=== PATIENT | male | born 1980 | race Native Hawaiian/Other Pacific Islander ===

== ENCOUNTER 2022-03-10 13:24 | Emergency (ER) | payer MEDICAID ==
--- NOTE | 2022-03-10 13:47 | ERPHSYRPT ---
- History of Present Illness Time Seen by Provider: 03/10/22 13:42 Source: patient Physician History: Patient is a 41-year-old male who has severe peripheral vascular disease he had amputations of his first 2 toes in December and has had an abscess recently 2 weeks ago and was treated at [facility]. He was on Vanco and other antibiotics. Presently he is on doxycycline orally. He had an appointment at the pain clinic today where he was to receive further pain medications. However he was not there at the correct time and there was no one there to take care of him when he did arrive and he was brought to the ER to obtain pain medicine.He is scheduled to see his sound technician and his infectious disease physician tomorrow. Occurred: other (He has chronic peripheral vascular disease) Quality: aching, burning Severity of Pain-Max: severe Severity of Pain-Current: severe Lower Extremities Pain: foot: bilateral Modifying Factors: Improves With: nothing Associated Symptoms: none Home Medications: Doxycycline Hyclate 100 mg [Vibramycin 100 MG] 100 mg PO BID 03/10/22 [History] Insulin Regular, Human [Humulin R] 200 unit SQ TID 03/10/22 [History] Pregabalin [Lyrica 75 mg Cap] 75 mg PO DAILY 03/10/22 [History] - Review of Systems Constitutional: No Fever, No Chills Eyes: No Symptoms Ears, Nose, & Throat: No Symptoms Respiratory: No Cough, No Dyspnea Cardiac: No Chest Pain, No Edema, No Syncope Abdominal/Gastrointestinal: No Abdominal Pain, No Nausea, No Vomiting, No Diarrhea Genitourinary Symptoms: No Dysuria Musculoskeletal: No Back Pain, No Neck Pain Skin: No Rash Neurological: No Dizziness, No Focal Weakness, No Sensory Changes Psychological: No Symptoms Endocrine: No Symptoms All Other Systems: Reviewed and Negative - Physical Exam General Appearance: moderate distress, alert Eyes, Ears, Nose, Throat Exam: moist mucous membranes Neck Exam: non-tender, supple Cardiovascular/Respiratory Exam: chest non-tender, normal breath sounds, regular rate/rhythm, no respiratory distress Gastrointestinal/Abdominal Exam: non-tender, guarding Back Exam: normal inspection, No vertebral tenderness Hips Exam: bilateral: non-tender, normal inspection, normal range of motion Legs Exam: bilateral leg: non-tender, normal inspection, normal range of motion Knees Exam: bilateral knee: non-tender, normal inspection, normal range of motion Ankle Exam: bilateral ankle: non-tender, normal inspection, normal range of motion Foot Exam: bilateral foot: other (There is amputation of the first 2 toes of the left foot which appears to be healing there are multiple ulcers on the plantar surface of the right foot and an abscess involving the third toe.) Neuro/Tendon Exam: normal sensation, normal motor functions Mental Status Exam: alert, oriented x 3, cooperative Skin Exam: normal color, warm, dry SpO2 Interpretation: normal O2 Delivery: Room Air - Course Nursing assessment & vital signs reviewed: Yes - Progress Progress: unchanged Progress Note: 03/10/22 13:48 We contacted the pain clinic and asked for an explanation as to why he was sent to our facility. They did say that they sent him here because there was no one left in the clinic to treat him today. - Departure Departure Disposition: Home Clinical Impression: Foot pain, bilateral Condition: Stable Critical Care Time: No Instructions: Chronic Pain (DC) Prescriptions: Hydrocodone/Acetaminophen [Hydrocodone-Acetamin 5-325 mg] 1 tab PO Q6HPRN PRN 3 Days #12 tablet MDD 4 PRN Reason: Pain
[2022-03-10 13:50] VITALS: BP 151/106; PULSE 115; O2SAT 98
[2022-03-10] MEDS ORDERED: NORCO 5/325 MG PO ONE (13:56)
[2022-03-10] MEDS ORDERED: NORCO 5/325 MG ONE (14:00)
== END 2022-03-10 14:12 | disposition home or self-care (01) ==
LOC: ED 13:24
DX: M79.671 Pain in right foot (principal); M79.672 Pain in left foot; I73.9 Peripheral vascular disease, unspecified; Z79.891 Long term (current) use of opiate analgesic; Z79.4 Long term (current) use of insulin; Z79.899 Other long term (current) drug therapy
CPT/HCPCS: 99281; A9270-GY